=== PATIENT | male | born 1995 | race Caucasian/White ===

== ENCOUNTER 2022-11-05 16:26 | Emergency (ER) | payer OTHER ==
[2022-11-05] MEDS ORDERED: Nitrofurantoin Monohydrate/Macrocrystalline 100 MG Cap PO ONE (17:20)
== END 2022-11-05 17:40 | disposition home or self-care (01) ==
LOC: LL.ED 16:26
DX: N30.01 Acute cystitis with hematuria (principal)
CPT/HCPCS: 81001; 99283; A9270-GY